=== PATIENT | male | born 1950 | race Caucasian/White ===

== ENCOUNTER 2022-04-25 05:45 | Day surgery (SDC) | payer OTHER, MEDICAID ==
[~2022-04-25] VITALS: Ht 177.8 cm; Wt 92.5 kg
[2022-04-25] MEDS ORDERED: CLINDAMYCIN PHOS 600 MG/ D5W 50 ML PREMIX IV ONE (07:00)
[2022-04-25] MEDS ORDERED: SEVOFLURANE 15 MIN GAS INH ONE (08:35)
[2022-04-25] MEDS ORDERED: BACITRACIN ZINC 15 GM TOPICAL OINTMENT TP ONE (08:35)
[2022-04-25] MEDS ORDERED: ONDANSETRON HCL 4 MG/2 ML VIAL ONE (08:35)
[2022-04-25] MEDS ORDERED: METOCLOPRAMIDE HCL 10 MG/2 ML VIAL ONE (08:35)
[2022-04-25] MEDS ORDERED: LR 1,000 ML IV.SOLN IV ONE (08:35)
[2022-04-25] MEDS ORDERED: NEOSTIGMINE METHYLSULFATE 1 MG/ML, 10 ML VIAL ONE (08:35)
[2022-04-25] MEDS ORDERED: OXYMETAZOLINE HCL 0.05% NASAL SPRAY NS ONE (08:35)
[2022-04-25] MEDS ORDERED: NS IRRIG SOLN 1000 ML IR ONE (08:35)
[2022-04-25] MEDS ORDERED: NS 1000 ML IV.SOLN IV ONE (08:35)
[2022-04-25] MEDS ORDERED: KETOROLAC TROMETHAMINE 30 MG VIAL ONE (08:35)
[2022-04-25] MEDS ORDERED: LIDOCAINE/EPI MPF 1%1:200000 30 ML VIAL ONE (08:35)
[2022-04-25] MEDS ORDERED: GLYCOPYRROLATE 0.2 MG/ML VIAL ONE (08:35)
[2022-04-25] MEDS ORDERED: ROCURONIUM BROMIDE 10 MG/ML (ZEMURON) ONE (08:35)
[2022-04-25] MEDS ORDERED: ETOMIDATE 20 MG/ 10 ML VIAL (AMIDATE) ONE (08:35)
[2022-04-25] MEDS ORDERED: fentaNYL CITRATE/PF 100 MCG/2 ML AMP ONE (08:35)
[2022-04-25] MEDS ORDERED: LIDOCAINE 1% 10 MG/ML, 20 ML MDV ONE (08:35)
[2022-04-25] MEDS ORDERED: HYDROmorphone 1 MG/ML INJ. CARTRIDGE IVP PRN (09:45)
[2022-04-25] MEDS ORDERED: HYDROmorphone 2 MG/ML VIAL IVP PRN (09:45)
[2022-04-25] MEDS ORDERED: LR 1,000 ML IV SCH (09:45)
[2022-04-25] MEDS ORDERED: ONDANSETRON HCL 4 MG/2 ML VIAL IVP PRN ×2 (09:45→10:30)
[2022-04-25] MEDS ORDERED: ONDANSETRON 4 MG ODT TAB PO PRN (10:30)
[2022-04-25] MEDS ORDERED: ACETAMINOPHEN 500 MG TABLET PO PRN (10:30)
[2022-04-25] MEDS ORDERED: HYDROcodone/ACETAMIN 5-325 MG TAB (NORCO/ VICODIN) PO PRN (10:30)
[2022-04-25 13:24] VITALS: BP_SYST 116
== END 2022-04-25 12:25 | disposition home or self-care (01) ==
LOC: SDS 05:45 → SMU 05:45 → SDS 12:25
PROVIDERS: ATTEND Otolaryngology
DX: J34.3 Hypertrophy of nasal turbinates (principal); I10 Essential (primary) hypertension; E11.9 Type 2 diabetes mellitus without complications; J45.909 Unspecified asthma, uncomplicated; Z20.822 Contact with and (suspected) exposure to COVID-19; Z79.899 Other long term (current) drug therapy
CPT/HCPCS: 36415 ×2; 30140; 82962; 87426; U0003; J3490 ×3; J1885; J2001; J2765; J2405; J3010; J7120; J7030; J2710